=== PATIENT | male | born 2000 | race Hispanic/Latino ===

== ENCOUNTER 2021-07-07 07:19 | Emergency (ER) | payer OTHER, BC ==
[~2021-07-07] VITALS: Ht 170.2 cm; Wt 67.1 kg
[2021-07-07] MEDS ORDERED: LORAZEPAM INJ 2 MG/ML VIAL INJ ONE (07:45)
[2021-07-07] MEDS ORDERED: SODIUM CHLORIDE 0.9% 1000ML 1,000 ML ONE ×2 (07:45→08:15)
[2021-07-07] MEDS ORDERED: LORAZEPAM INJ 2 MG/ML VIAL ONE (08:15)
[2021-07-07 09:07] VITALS: BP 114/72
== END 2021-07-07 09:14 | disposition home or self-care (01) ==
LOC: FSED 07:27
DX: R07.89 Other chest pain (principal); R06.02 Shortness of breath; R61 Generalized hyperhidrosis
CPT/HCPCS: 71046; 96374; 99283; J2060; J7030; 93005